=== PATIENT | male | born 1955 | race Caucasian/White ===

== ENCOUNTER 2016-08-12 09:15 | Emergency (ER) | payer BC ==
[2016-08-12] MEDS ORDERED: NS 0.9% 1000 ML* 1,000 ML IV ONE (11:25)
--- NOTE | 2016-08-12 11:40 | UC ---
Abdominal Pain Male HPI - HPI Summary HPI Summary: patient has has LLQ pain since wednesday accompanied by diarrhea for the past 3 days. Some chills on Wednesday, other aguiar not noted fever. has persistent diarrhea , and denies nausea, stool sample was obtained. has not been able to eat much, appetite in down. denies dizzyness or lightheadedness, BP is low, states he is drinking lots, denies dysuria. - History of Current Complaint Chief Complaint: UCAbdominalPain Stated Complaint: DIARRHEA Time Seen by Provider: 08/12/16 10:48 Hx Obtained From: Patient Onset/Duration: Sudden Onset, Lasting Days Timing: Constant Severity Initially: Moderate Severity Currently: Moderate Pain Intensity: 6 Pain Scale Used: 0-10 Numeric Location: Diffuse - with increased pain in LLQ Radiates: Yes Radiates to: Flank Character: Aching, Cramping Aggravating Factor(s):: Food Alleviating Factor(s): Nothing Associated Signs And Symptoms: Positive: Decreased Appetite, Diarrhea - Risk Factors Testicular Torsion: Negative Cardiac Risk Factors: Diabetes - Allergies/Home Medications Allergies/Adverse Reactions: Allergies Allergy/AdvReac Type Severity Reaction Status Date / Time No Known Allergies Allergy Verified 08/12/16 10:47 PMH/Surg Hx/FS Hx/Imm Hx Previously Healthy: Yes Endocrine History Of: Reports: Diabetes Cardiovascular History Of: Reports: Hypertension Denies: Pacemaker/ICD - Surgical History Surgical History: Yes Surgery Procedure, Year, and Place: [place], [place] 1997, [place] 1999, [place] - Family History Known Family History: Positive: Hypertension, Diabetes - Social History Alcohol Use: Rare Substance Use Type: None Smoking Status (MU): Former Smoker - Immunization History Most Recent Influenza Vaccination: Not the Season Review of Systems Constitutional: Negative Skin: Negative Eyes: Negative ENT: Negative Respiratory: Negative Cardiovascular: Negative Gastrointestinal: Abdominal Pain, Diarrhea Genitourinary: Negative Motor: Negative Neurovascular: Negative Musculoskeletal: Negative Neurological: Negative Psychological: Negative All Other Systems Reviewed And Are Negative: Yes Physical Exam Triage Information Reviewed: Yes Appearance: Well-Nourished, Ill-Appearing, Pain Distress Vital Signs: Initial Vital Signs Temp 98.9 F 08/12/16 10:40 Pulse 92 08/12/16 10:40 Resp 16 08/12/16 10:40 BP 89/52 08/12/16 10:40 Pulse Ox 98 02/15/17 10:40 Vital Signs Reviewed: Yes Eye Exam: Normal Eyes: Positive: Conjunctiva Clear ENT Exam: Normal ENT: Positive: Normal ENT inspection, Hearing grossly normal, Pharynx normal, TMs normal Dental Exam: Normal Neck exam: Normal Neck: Positive: Supple, Nontender, No Lymphadenopathy Respiratory Exam: Normal Respiratory: Positive: Chest non-tender, Lungs clear, Normal breath sounds Cardiovascular Exam: Normal Cardiovascular: Positive: RRR, No Murmur, Pulses Normal Abdominal Exam: Other - diffuse tenderness, LLQ pain on palpation, mild rebound tenderness, abdomen is large, no guarding or distension noted, neg CVA tenderness bilaterally, no organomegaly Bowel Sounds: Positive: Hyperactive Musculoskeletal Exam: Normal Musculoskeletal: Positive: Strength Intact, ROM Intact, No Edema Neurological Exam: Normal Neurological: Positive: Alert, Muscle Tone Normal Psychological Exam: Normal Skin Exam: Normal Abd Pain Male Course/Dx - Course Course Of Treatment: hisotry obtained, exam performed, meds reviewed, stool sample obtained, UA obtained, IV fluids given for hypotension and dehydration, EKG obtained to rule out any cardiac issue no acute changes noted, consulted Dr Moyer about course of care, he also evaluated patients abdomen, patient BP remained low after fluids, recommend transfer to ER for further eval. patient in agreement via ambulance. - Differential Dx/Clinical Impression Differential Diagnosis/HQI/PQRI: Appendicitis, Bowel Obstruction, Diverticulitis , Pneumonia, Ureteral Stone, Urinary Tract Infection Provider Diagnoses: adbominal pain. hypotension. diarrhea - Physician Notification/Consults Discussed Patient Care With: dr moyer. Ekaterina Garcia NP Instructed by Provider To: MD Will See In ED Discharge - Discharge Plan Condition: Stable Disposition: [facility] Referrals: Babatunde Rg MD [Primary Care Provider] -
[2016-08-12 12:44] VITALS: BP 88/58
== END 2016-08-12 13:03 | disposition short-term general hospital (02) ==
LOC: UCCORT 09:15
DX: R10.9 Unspecified abdominal pain (principal); I95.9 Hypotension, unspecified; Z87.891 Personal history of nicotine dependence
CPT/HCPCS: 93005; 96360; 99213; G0463

== ENCOUNTER 2017-04-03 07:49 | Emergency (ER) | payer BC ==
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
[2017-04-03 08:23] VITALS: BP 126/65
== END 2017-04-03 08:28 | disposition short-term general hospital (02) ==
LOC: UCCORT 07:49
DX: R60.0 Localized edema (principal); Z87.891 Personal history of nicotine dependence
CPT/HCPCS: 99212; G0463

== ENCOUNTER 2018-03-08 13:50 | Emergency (ER) | payer BC ==
[2018-03-08 15:12] VITALS: BP 99/53
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
== END 2018-03-08 16:06 | disposition home or self-care (01) ==
LOC: UCCORT 13:50
DX: T23.292D Burn of second degree of multiple sites of left wrist and hand, subsequent encounter (principal); X08.8XXD Exposure to other specified smoke, fire and flames, subsequent encounter; Z87.891 Personal history of nicotine dependence
CPT/HCPCS: 99212; G0463

== ENCOUNTER 2018-03-09 15:35 | Emergency (ER) | payer BC ==
[2018-03-09 16:59] VITALS: BP 108/58
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
== END 2018-03-09 17:48 | disposition home or self-care (01) ==
LOC: UCCORT 15:35
DX: T23.262D Burn of second degree of back of left hand, subsequent encounter (principal); T23.272D Burn of second degree of left wrist, subsequent encounter; T22.212D Burn of second degree of left forearm, subsequent encounter; T31.0 Burns involving less than 10% of body surface; X08.8XXD Exposure to other specified smoke, fire and flames, subsequent encounter; W40.1XXD Explosion of explosive gases, subsequent encounter; E11.9 Type 2 diabetes mellitus without complications; Z87.891 Personal history of nicotine dependence
CPT/HCPCS: 16020; 99211; 99212; G0463

== ENCOUNTER 2018-03-10 17:43 | Emergency (ER) | payer BC ==
[2018-03-10 19:23] VITALS: BP 121/54
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
[2018-03-10] MEDS ORDERED: Mupirocin 2% CREAM* 15 GM TOPICAL ONE (19:47)
[2018-03-10] MEDS ORDERED: Mupirocin 2% OINT* TUBE TOPICAL ONE (19:55)
== END 2018-03-10 20:31 | disposition home or self-care (01) ==
LOC: UCCORT 17:43
DX: T22.212D Burn of second degree of left forearm, subsequent encounter (principal); T31.0 Burns involving less than 10% of body surface; X08.8XXD Exposure to other specified smoke, fire and flames, subsequent encounter; Z87.891 Personal history of nicotine dependence
CPT/HCPCS: 16030; 99211; A9270-GY; G0463